=== PATIENT | female | born 1965 | race Caucasian/White ===

== ENCOUNTER 2019-12-04 10:52 | Emergency (ER) | payer MEDICAID ==
[~2019-12-04] VITALS: Ht 167.6 cm; Wt 96.0 kg
[2019-12-04 13:17] LABS: CLARITY URINE CLEAR (CLEAR); COLOR URINE YELLOW (YELLOW); KETONES URINE NEGATIVE (NEGATIVE); LEUKOCYTE ESTERASE URINE NEGATIVE (NEGATIVE); NITRITE URINE NEGATIVE (NEGATIVE); OCCULT BLOOD URINE NEGATIVE (NEGATIVE); PROTEIN URINE NEGATIVE (NEGATIVE); SPECIFIC GRAVITY URINE 1.023 (1.005-1.030); UROBILINOGEN URINE 0.2 E.U./dL (0.2-1.0)
[2019-12-04] MEDS ORDERED: IBUPROFEN 600MG TABLET PO ONE (13:45)
[2019-12-04 13:57] VITALS: BP 130/90
== END 2019-12-04 14:00 | disposition home or self-care (01) ==
LOC: ER 10:52
DX: J06.9 Acute upper respiratory infection, unspecified (principal); R30.0 Dysuria
CPT/HCPCS: 81003; 99283